=== PATIENT | female | born 1985 | race Caucasian/White ===

== ENCOUNTER 2019-01-18 16:55 | Emergency (ER) | payer BC ==
[~2019-01-18] VITALS: Ht 177.8 cm; Wt 68.0 kg
[~2019-01-18 16:55] MED LIST: CEPHALEXIN500 MG OR; CORTISPORIN OTI10 ML AD; GENOPTIC0.3 % OS; LORTAB 10 PO; NO HOME MEDS; ULTRAM50 M1 PO
[2019-01-18] MEDS ORDERED: DOXYCYC MONO100 M2 PO (17:16)
[2019-01-18 17:20] VITALS: BP 100/69
== END 2019-01-18 17:20 | disposition home or self-care (01) | DRG 603 ==
LOC: ED 16:55
DX: L03.113 Cellulitis of right upper limb (principal)

== ENCOUNTER 2021-06-09 17:48 | Emergency (ER) | payer BC ==
[~2021-06-09] VITALS: Ht 177.8 cm; Wt 65.0 kg
[2021-06-09] VITALS (8 sets, daily range): BP systolic 112–123; BP diastolic 75–87
[~2021-06-09 17:48] MED LIST changes: +DOXYCYC MONO100 M2 PO
[2021-06-09] MEDS ORDERED: PERCOCET1 TA4 PO ×2 (19:54→20:24)
[2021-06-09] MEDS ORDERED: KEFLEX500 MG PO ×2 (19:54→20:24)
== END 2021-06-09 20:36 | disposition home or self-care (01) | DRG 563 ==
LOC: ED 17:48
PROC: 0HQGXZZ Repair Left Hand Skin, External Approach (ICD-10-PCS; principal; 2021-06-09)
DX: S62.635B Displaced fracture of distal phalanx of left ring finger, initial encounter for open fracture (principal); V80.8 Animal-rider or occupant of animal-drawn vehicle injured in collision with fixed or stationary object; Y93.52 Activity, horseback riding; Y92.009 Unspecified place in unspecified non-institutional (private) residence as the place of occurrence of the external cause

== ENCOUNTER 2021-06-15 16:41 | Emergency (ER) | payer BC ==
[~2021-06-15] VITALS: Ht 177.8 cm; Wt 75.0 kg
[~2021-06-15 16:41] MED LIST changes: +KEFLEX500 MG PO; +PERCOCET1 TA4 PO
[2021-06-15 17:26] VITALS: BP 123/75
[2021-06-15 18:00] VITALS: BP 102/66
[2021-06-15 18:32] VITALS: BP 102/66
== END 2021-06-15 18:45 | disposition home or self-care (01) | DRG 561 ==
LOC: ED 16:41
DX: S62.635D Displaced fracture of distal phalanx of left ring finger, subsequent encounter for fracture with routine healing (principal); X58.XXXD Exposure to other specified factors, subsequent encounter; K59.00 Constipation, unspecified

== ENCOUNTER 2023-09-03 14:13 | Emergency (ER) | payer BC ==
[~2023-09-03] VITALS: Ht 177.8 cm; Wt 63.5 kg
[2023-09-03] VITALS (8 sets, daily range): BP systolic 112–125; BP diastolic 72–81
[2023-09-03] MEDS ORDERED: HYDROcodone 5 MG/Acetaminophen 325 MG/COMBO PO ONE (14:30)
[2023-09-03] MEDS ORDERED: LORTAB 5/3255 MG PO (14:36)
[2023-09-03] MEDS ORDERED: PREDNISONE20 MG PO (14:36)
[2023-09-03] MEDS ORDERED: VALTREX1 GM PO (14:36)
== END 2023-09-03 15:53 | disposition home or self-care (01) | DRG 596 ==
LOC: ED 14:13
DX: B02.9 Zoster without complications (principal)